=== PATIENT | female | born 2000 | race Caucasian/White ===

== ENCOUNTER 2024-01-26 10:10 | Emergency (ER) | payer OTHER, SELFPAY ==
[2024-01-26 10:27] VITALS: BP 138/83; PULSE 103; RESP 20; TEMP 36.7; O2SAT 100
--- NOTE | 2024-01-26 10:48 | ED.FEMALEGU ---
HPI - Female Genitourinary General Chief complaint: Urogenital-Female Stated complaint: vaginal discharge,cold sores on lip Source: patient and RN notes reviewed Mode of arrival: ambulatory Limitations: no limitations History of Present Illness HPI Narrative: 23 y/o female presented with c/o yellow vaginal discharge for 6 months. States she was told at onset she had bladder leakage and was seen by urology, but the medication she started did not improve the leakage so she was told it is likely discharge due to BV. However she was not treated for it. Also has been seen by her Obgyn but no swabs were done as she was on her cycle at the time. Pt endorses a new sexual partner but denies concern for or STD. States she is only concerned for BV at this time. Denies dysuria, hematuria, nausea, vomiting, abdominal pain, flank pain, constipation, diarrhea, fevers or chills. 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 States she has increased stress due to school. Denies vaginal lesions. Related Data Home Medications Medication Instructions Recorded Confirmed valacyclovir 500 mg tablet 500 mg PO DIRECTED 01/26/24 01/26/24 Allergies Allergy/AdvReac Type Severity Reaction Status Date / Time oseltamivir Allergy Unknown Swelling Verified 01/26/24 10:20 Review of Systems Review of Systems: CONSTITUTIONAL: Denies body aches, fever, chills, or sweats. CARDIOVASCULAR: Denies chest pain, palpitations, or edema. RESPIRATORY: Denies cough or dyspnea. GASTROINTESTINAL: Denies abdominal pain, nausea, vomiting, or diarrhea. GENITOURINARY: Reports vaginal discharge. Denies dysuria, frequency, urgency, hematuria, flank pain SKIN: Denies rash, itching, or wounds. MUSCULOSKELETAL: Denies back pain or myalgia. [facility] Comments At time of signature, I have reviewed and agree with nursing past medical, surgical, social and family history unless otherwise noted. Please see nursing chart for further information. There is no relevant family history pertinent to the presenting complaint Exam Narrative: GENERAL: Well-appearing ENT: Mucous membranes pink and moist. CHEST: No respiratory distress. Clear to auscultation. HEART: Regular rate and rhythm. ABDOMEN: Soft, nontender, nondistended, normal active bowel sounds. No CVA tenderness : External labia normal without lesions, No swelling. Nontender. white discharge noted. Swab collected only for bv no speculum exam. SKIN: Warm, dry, no rash. NEURO: No focal deficits. Alert and oriented x3. Gait steady. PSYCH: Normal affect. Course Course Emergency Course: Patient is aware of diagnosis, understands and agrees to treatment plan. Anticipatory guidance given. Patient agrees to follow-up as directed and is aware of reasons to seek care at the emergency department. Portions of this record may have been created with voice recognition software Level of Care: Express Care Visit Vital Signs Vital signs: Vital Signs Temperature 98.0 F 01/26/24 10:27 Pulse Rate 103 H 01/26/24 10:27 Respiratory Rate 20 01/26/24 10:27 Blood Pressure 138/83 01/26/24 10:27 Pulse Oximetry 100 01/26/24 10:27 Oxygen Delivery Room Air 01/26/24 10:27 Temperature 98.0 F 01/26/24 10:27 Pulse Rate 103 H 01/26/24 10:27 Respiratory Rate 20 01/26/24 10:27 Blood Pressure 138/83 01/26/24 10:27 Pulse Oximetry 100 01/26/24 10:27 Oxygen Delivery Room Air 01/26/24 10:27 Reviewed MDM - Female Genitourinary MDM Narrative Medical decision making narrative: Patient presenting with concern for BV, swab collected and sent. Denies concern for other STD at this time and is concerned her parents will be notified of the results through billing or other. Informed Pt will be contacted w/ BV results when they become available. Discussed with patient that it takes up to 7 days for results of cultures to be released and explained that we may treat empirically at this time. Agreeable to treatment at this time. I have instructed the patient to return to the ER at any time if there are any new or worsening symptoms. The patient expressed understanding of and agreement with this plan. Pt will continue with her valacyclovir and f/u with obgyn. Declined viscous lidocaine. Differential Diagnosis Differential diagnosis: Likely urinary tract infection, bacterial vaginosis, trichomoniasis, vaginitis and other Discharge Plan Discharge Clinical Impression: Vaginal discharge Patient Disposition: Home, Self-Care Condition: Stable Instructions: Antibiotic Form, Bacterial Vaginosis (ED) Additional Instructions: Take medication as directed Bacterial vaginosis happens when bacteria usually found in the vagina grow too much. This growth upsets the balance of good and bad bacteria in the vagina. It tends to come back within 3 to 12 months. Follow up with your primary care provider or Obgyn as needed in 1 week Go to the ER for worsening symptoms or concerns Prescriptions: New metronidazole 500 mg tablet 500 mg PO Q12H 7 Days Qty: 14 0RF No Action valacyclovir 500 mg tablet 500 mg PO DIRECTED Follow-up/Referrals: Samaria,PAU Richey [Primary Care Provider] - Time of Disposition: 10:53
[2024-01-28 15:13] LABS: Bacterial Vaginosis POSITIVE (NEGATIVE)
== END 2024-01-26 10:40 | disposition home or self-care (01) ==
PROVIDERS: Emergency Provider Nurse Practitioner Family; PCP Nurse Practitioner Family
DX: N89.8 Other specified noninflammatory disorders of vagina (principal)
CPT/HCPCS: 81513; 99213; G0463

== ENCOUNTER 2024-02-21 14:32 | Emergency (ER) | payer OTHER, SELFPAY ==
[2024-02-21 14:58] VITALS: BP 130/81; PULSE 88; RESP 16; TEMP 36.4; O2SAT 100
--- NOTE | 2024-02-21 15:49 | ED.FEMALEGU ---
HPI - Female Genitourinary General Chief complaint: Urogenital-Female Stated complaint: Uti Symptoms Time Seen by Provider: 02/21/24 15:52 Source: patient and RN notes reviewed Mode of arrival: ambulatory Limitations: no limitations History of Present Illness HPI Narrative: 23-year-old female presented for complaint of burning with urination and frequency. Onset today. Denies hematuria, nausea, vomiting, abdominal pain, flank pain, constipation, diarrhea, fevers or chills. Related Data Home Medications Medication Instructions Recorded Confirmed glycopyrrolate 1 mg tablet 1 mg PO DAILY 02/21/24 02/21/24 norgestimate 0.25 mg-ethinyl 1 tablet PO DAILY 02/21/24 02/21/24 estradiol 35 mcg tablet (Sprintec (28)) Allergies Allergy/AdvReac Type Severity Reaction Status Date / Time oseltamivir Allergy Unknown Swelling Verified 02/21/24 15:26 Review of Systems Review of Systems: CONSTITUTIONAL: Denies body aches, fever, chills, or sweats. CARDIOVASCULAR: Denies chest pain, palpitations, or edema. RESPIRATORY: Denies cough or dyspnea. GASTROINTESTINAL: Denies abdominal pain, nausea, vomiting, or diarrhea. GENITOURINARY: Reports dysuria, frequency, denies urgency, hematuria, flank pain SKIN: Denies rash, itching, or wounds. MUSCULOSKELETAL: Denies back pain or myalgia. [facility] Comments At time of signature, I have reviewed and agree with nursing past medical, surgical, social and family history unless otherwise noted. Please see nursing chart for further information. There is no relevant family history pertinent to the presenting complaint Exam Narrative: GENERAL: Well-appearing ENT: Mucous membranes pink and moist. CHEST: No respiratory distress. Clear to auscultation. HEART: Regular rate and rhythm. ABDOMEN: Soft, nontender, nondistended, normal active bowel sounds. No CVA tenderness SKIN: Warm, dry, no rash. NEURO: No focal deficits. Alert and oriented x3. Gait steady. PSYCH: Normal affect. Course Course Emergency Course: Patient is aware of diagnosis, understands and agrees to treatment plan. Anticipatory guidance given. Patient agrees to follow-up as directed and is aware of reasons to seek care at the emergency department. Portions of this record may have been created with voice recognition software Level of Care: Express Care Visit Vital Signs Vital signs: Vital Signs Temperature 97.5 F L 02/21/24 14:58 Pulse Rate 88 02/21/24 14:58 Respiratory Rate 16 02/21/24 14:58 Blood Pressure 130/81 02/21/24 14:58 Pulse Oximetry 100 02/21/24 14:58 Temperature 97.5 F L 02/21/24 14:58 Pulse Rate 88 02/21/24 14:58 Respiratory Rate 16 02/21/24 14:58 Blood Pressure 130/81 02/21/24 14:58 Pulse Oximetry 100 02/21/24 14:58 Reviewed MDM - Female Genitourinary MDM Narrative Medical decision making narrative: Discussed physical exam findings and urine dip. Advised supportive measures and signs/symptoms to go to the ER. Pt is appropriate for outpt treatment and f/u. Differential Diagnosis Differential diagnosis: Likely urinary tract infection and cystitis Discharge Plan Discharge Clinical Impression: Urinary tract infection Patient Disposition: Home, Self-Care Condition: Stable Instructions: Antibiotic Form, Urinary Tract Infection in Women (ED) Additional Instructions: Take the antibiotic as prescribed The urine will be sent of for a culture to identify what type of bacteria is causing your infection. If the culture shows that the antibiotic will not get rid of your infection, you will be notified and a new antibiotic will be called in for you. Increase water intake you will need to follow up with your PCP, call to schedule an appointment. Go to the ER for any worsening symptoms or concerns Prescriptions: New nitrofurantoin monohyd/m-cryst [Macrobid] 100 mg capsule 100 mg PO Q12H 5 Days Qty: 10 0RF Rx Instructions: must administer with a meal/food No Action glycopyrrolate 1 mg tablet 1 mg PO DAILY norgestimate-ethinyl estradiol [Sprintec (28)] 0.25-35 mg-mcg tablet 1 tablet PO DAILY Follow-up/Referrals: Samaria,PAU Richey [Primary Care Provider] - Time of Disposition: 15:52
[2024-02-21 16:00] LABS: EDUAAPPEAR Cloudy; EDUABILI Negative (Negative); EDUABLOOD 2+ (Negative); EDUACOLOR1 Yellow; EDUAGLUCOSE Negative (Negative); EDUAKETONE Negative (Negative); EDUALEUKO 1+ (Negative); EDUANITRATE Negative (Negative); EDUAPH 5.5; EDUAPROTEIN Trace (Negative)
== END 2024-02-21 15:54 | disposition home or self-care (01) ==
PROVIDERS: Emergency Provider Nurse Practitioner Family; PCP Nurse Practitioner Family
DX: N39.0 Urinary tract infection, site not specified (principal); B96.20 Unspecified Escherichia coli [E. coli] as the cause of diseases classified elsewhere
CPT/HCPCS: 81003; 87086; 87186; 99213; G0463

== ENCOUNTER 2024-03-21 14:54 | Outpatient (CLI) | payer OTHER, SELFPAY ==
--- NOTE | ~2024-03-21 | CT_ITS ---
EXAMINATION: CT abdomen pelvis wo/w con DATE: 03/21/2024 15:30 INDICATION: Renal scarring. TECHNIQUE: Computed tomography (CT) of the abdomen and pelvis was performed without and with 100 mL O mnipaque 350 intravenous contrast. Automated exposure control and iterative reconstruction technique were employed. The dose-length product was 449.81 mGy-cm. COMPARISON: None. FINDINGS: The visualized portions of the lung bases are clear without pneumonia or pleural effusion. The heart size is normal. No pericardial effusion. The liver, gallbladder, are normal. Calcifications in the spleen are consistent with old granulomatous disease. The pancreas, adrenal glands, and left kidney are normal. There are multiple areas of focal volume loss of the right kidney. There is no uro lithiasis. There are no dilated loops of bowel. The appendix is not visualized. There is no significa nt stenosis of the renal arteries. There are no pathologically enlarged lymph nodes. There is no free intraperitoneal fluid. There is lumbar levoscoliosis. There is mild thoracic and lumbar spondylosis. IMPRESSION: 1. Mild atrophy of right kidney. Reviewed, dictated and finalized at location A. [employer]
== END 2024-03-21 14:55 | disposition home or self-care (01) ==
PROVIDERS: PCP Nurse Practitioner Family; Visit Provider Urology
DX: N26.1 Atrophy of kidney (terminal) (principal); N28.89 Other specified disorders of kidney and ureter
CPT/HCPCS: 74178; Q9967